=== PATIENT | male | born 1955 | race Caucasian/White ===

== ENCOUNTER → 2017-10-04 | Outpatient (CLI) | payer OTHER ==
[~2017-10-04] VITALS: Ht 175.3 cm; Wt 119.7 kg
[2017-10-04] VITALS (11 sets, daily range): BP systolic 96–144; BP diastolic 57–80
[~2017-10-04] MED LIST: ASPIR 8181 M1 PO; CINNAMON500 MG PO; COREG25 MG PO; LIPITOR80 MG PO; NORVASC10 MG PO; OMEPRAZOLE20 MG PO; PLAVIX 75 MG TA75 M1 PO; SELENIUM100 MCG PO; ZESTRIL40 MG PO
[2017-10-04 09:32] LABS: HEMATOCRIT 40.4 % (42.0-52.0); HEMOGLOBIN 13.8 gm/dL (14.0-18.0); MCH 28.7 pg (26.0-34.0); MCHC 34.2 g/dL (28.0-37.0); MCV 83.8 fL (80.0-100.0); MPV 8.4 fl. (7.2-11.1); RBC 4.82 mil/uL (4.50-6.00); RDW-CV 13.2 % (10.5-14.5); WBC 8.4 thou/uL (4.0-11.0)
[2017-10-04 09:37] LABS: ANION GAP 11 mmol/L (7-16); BUN 10 mg/dL (7-18); CALCIUM 8.9 mg/dL (8.5-10.1); CHLORIDE 103 mmol/L (98-107); CO2 26 mmol/L (21-32); CREATININE 0.9 mg/dL (0.6-1.3); GLUCOSE 160 mg/dL (70-99); POTASSIUM 4.2 mmol/L (3.5-5.1); SODIUM 140 mmol/L (136-145)
[2017-10-04 09:39] LABS: APTT 28.8 Seconds (25.0-31.3); PROTIME 10.2 Seconds (9.20-11.50)
[2017-10-04 09:44] LABS: ALBUMIN 3.6 g/dL (3.4-5.0); ALKALINE PHOSPHATASE 107 U/L (46-116); CHOLESTEROL 128 mg/dL (<200); HDL CHOLESTEROL 37 mg/dL (>40); LDL CHOLESTEROL 39 mg/dL (<100); SERUM ASSESSMENT Clear; SGOT 54 U/L (15-37); SGPT 81 U/L (30-65); TC:HDL 3.5 Ratio (Not establshd); TOTAL BILIRUBIN 0.4 mg/dL (<0.1-1.0); TOTAL PROTEIN 7.5 g/dL (6.4-8.2); TRIGLYCERIDE 261 mg/dL (<150); VLDL 52 mg/dL (<40)
--- NOTE | 2017-10-04 14:24 | TEE ---
[place] [address] TRANSESOPHAGEAL ECHOCARDIOGRAM Name: ALL PERDUEMOND Gisella Room: [facility]#: [id number] Admission: 10/04/17 Attend Phys: Serge Shaw, Discharge: Date of : 59 Date of Service: 10/04/17 1423 Report #: [id number] THIS REPORT FOR: //name// APPROVED REPORT Study performed: 10/04/2017 10:39:22 EXAM: Transesophageal Echocardiogram Patient Location: Out-Patient Status: routine BSA: 2.33 HR: 67 bpm BP: 127/70 mmHg Rhythm: NSR Other Information Study Quality: Good Indications Dilated aortic root, pre cath Echo Enhancing Agent Indication: Rule out Shunt Agent(s) / Amount(s) Used: Agitated Saline 10 cc Procedure After obtaining informed consent, patient underwent transesophageal echo in the [employer]. Type of Sedation : Conscious Sedation Sedation was administered by Marcela Vargas. Sedation start time: 1039 Case end Time: 1100 Sedation was achieved intravenously with: Versed (6) Fentanyl (125) Transesophageal probe was inserted and advanced into esophagus without difficulty by Serge Shaw MD, FACC. Echo enhancement indication: R/O Septal defect. Echo enhancement agent administered: Agitated Saline The BUSHRA was performed without complications. Throughout the procedure, the blood pressure, pulse oximetry, cardiac rhythm, and rate were monitored. The patient tolerated the procedure without adverse effects. Recovery from conscious sedation was uneventful and vital signs were stable. Left Ventricle [address] [address] TRANSESOPHAGEAL ECHOCARDIOGRAM Name: SAMIRA PERDUE Room: [facility] Patience#: [id number] Admission: 10/04/17 Attend Phys: Serge Shaw, Discharge: Date of : 59 Date of Service: 10/04/17 1423 Report #: [id number] The left ventricle is normal size. There is normal LV segmental wall motion. There is normal left ventricular wall thickness. Left ventricular systolic function is normal. LVEF is 60-65%. Right Ventricle The right ventricle is normal size. The right ventricular systolic function is normal. Atria The left atrium size is normal. No thrombus is visualized in the left atrium or appendage. Interatrial septum is intact without evidence of ASD or PFO. The right atrium size is normal. Aortic Valve The aortic valve is normal in structure. No aortic regurgitation is present. There is no aortic valvular stenosis. Mitral Valve The mitral valve is normal in structure. Trace to mild mitral regurgitation. No evidence of mitral valve stenosis. Tricuspid Valve Tricuspid valve is not well visualized. Pulmonic Valve Pulmonic valve is not well visualized. Great Vessels The aortic root is normal in size. The ascending aorta is moderate to severely dilated. Pericardium There is no pericardial effusion. <Conclusion> The left ventricle is normal size. There is normal left ventricular wall thickness. Left ventricular systolic function is normal. LVEF is 60-65%. The left atrium size is normal. No thrombus is visualized in the left atrium or appendage. The aortic valve is normal in structure. No aortic regurgitation is present. There is no [place] [address] TRANSESOPHAGEAL ECHOCARDIOGRAM Name: SAMIRA PERDUE Room: [facility]#: [id number] Admission: 10/04/17 Attend Phys: Serge Shaw, Discharge: Date of : 59 Date of Service: 10/04/17 142 Report #: [id number] Trace to mild mitral regurgitation. The ascending aorta is moderate to severely dilated. <ELECTRONICALLY SIGNED> By: Serge Shaw MD, FACC 10/04/17 142 22 22 Serge Shaw MD, FACC /INF
--- NOTE | 2017-10-04 14:54 | EKG ---
[place] [address] ELECTROCARDIOGRAM REPORT Name: SAMIRA PERDUE Room: [facility]#: [id number] Admission: 10/04/17 Attend Phys: Serge Shaw MD Discharge: Date of : 59 Report #: [id number] THIS REPORT FOR: //name// [facility] Test Date: 2017-10-04 Test Time: 09:45:32 Pat Name: SAMIRA PERDUE Department: Room: Gender: M Inspector Plug Seam: : 1955 Requested By: Serge Shaw Order Number: [id number] Reading MD: Karthikeyan Barlow Measurements Intervals [place] Rate: 54 P: 26 MA: 149 QRS: -28 QRSD: 111 T: 39 QT: 460 QTc: 436 Interpretive Statements Sinus rhythm Abnormal R-wave progression, early transition Left ventricular hypertrophy Baseline wander in lead(s) V4 No previous ECG available for comparison Electronically Signed On 10-04-2017 14:54:45 INFECTION CONTROL PRACTITIONER by Karthikeyan Barlow [email or web address] <ELECTRONICALLY SIGNED> By: Karthikeyan Barlow MD, [facility] 10/04/17 1454 944 4 Karthikeyan Barlow MD, FACC /EPI
--- NOTE | 2017-10-04 17:07 | CARD ---
[address] [address] CARDIAC CATH REPORT Name: SAMIRA PERDUE Room: [facility] [employer]Hima#: [id number] Admission: 10/04/17 Attend Phys: Serge Shaw MD Discharge: Date of : 59 Report #: [id number] THIS REPORT FOR: //name// ADDENDUM APPROVED REPORT Patient Details Patient Status: Out-Patient Room #: The patient is a 62 year-old male Event Personnel Serge Shaw Frame Trimmer, Marcela Vargas RN Housekeeping Director, Florence Smith Monitor, Jeffery Donovan Scrub Procedures Performed Art Access - R radial artery Left Heart Cath w/or w/o Coronaries [id number] [facility] Indication Patient has ascending aortic root aneurysm. Plan for repair in near future. Patient presents for elective left heart catheterization coronary angiography and evaluation of aortic valve. Procedure Narrative The patient was brought electively to the Cardiac Catheterization Laboratory and was prepped and draped in a sterile manner. The right wrist was infiltrated with 1% Lidocaine subcutaneous anesthesia. A Slender Glidesheath sheath was inserted into the right radial artery. Coronary angiography was performed using coronary diagnostic catheters. The right coronary system was accessed and visualized with a 3DRC 5frDiagnostic catheter. The left coronary system was accessed and visualized with a DCR: [place] 4.0 5frDiagnostic catheter. The left ventricle was accessed and visualized with a PC: Pig 6frDiagnostic catheter. Left ventriculogram was performed in GARCIA projection. Intraoperative Conscious Sedation Sedation start time: 11:23 Case end Time: 11:40 Versed 1 mg Fluoro Time: 7.0 minutes Dose: DAP [id number] cGycm2 2015.04 mGy Contrast Type and Amount: Omnipaque 130 [place] [address] CARDIAC CATH REPORT Name: SAMIRA PERDUE Room: [facility]#: [id number] Admission: 10/04/17 Attend Phys: Serge Shaw MD Discharge: Date of : 59 Report #: [id number] The patient's coronary anatomy is right dominant. Diagnostic Cath Left Main The left main coronary artery is normal and bifurcates into a left anterior descending and circumflex coronary artery. LAD The left anterior descending coronary artery has some mild 30% plaquing proximally. The distal vessel has a tubular 50% narrowing and 70% narrowing at the apex. There is a patent stents in the proximal portion of the LAD. Diagonal 1 The first diagonal branch has a 60% ostial narrowing and mild 10% narrowing in its mid course. Diagonal 2 The second diagonal branch is normal. Circumflex The circumflex coronary artery has a 95% stenosis after the takeoff of a third obtuse marginal branch. No other significant stenoses are noted. OM1 The first obtuse marginal branch is small and normal. OM2 The second obtuse marginal branches small to moderate in size and normal. OM3 The third obtuse marginal branch is moderate in size in normal. L PDA The fourth obtuse marginal branch is moderate in size and has a 90% ostial stenosis. Right Coronary The right coronary artery is minimally plaqued up to 10% in its proximal mid and distal portions. No hemodynamically significant stenoses are noted. R PDA The right PDA has a 90% proximal stenosis. The mid and distal vessel appeared normal. RPLV The right posterior lateral LV branch appears normal. Left Ventriculography The left ventricle is normal in size with normal contractility. The left ventricular ejection fraction is estimated to be 60-65%. Left ventricular wall motion abnormalities are not present. Hemodynamics The aortic pressure is 102/63 mmHg with a mean of mmHg. The left ventricular pressure is 111/-2 mmHg with a mean of mmHg. The left ventricular end diastolic pressure is 10 mmHg. There was no gradient across the aortic valve upon pullback. Pullback from the left ventricle to the aorta revealed no gradient across the aortic valve. Conclusion 1. Three-vessel coronary artery disease as outlined above. 2. [place] [address] CARDIAC CATH REPORT Name: SAMIRA PERDUE Room: [facility] SYD Morin#: [id number] Admission: 10/04/17 Attend Phys: Serge Shaw MD Discharge: Date of : 59 Report #: [id number] 3. Normal left ventricular systolic function. 4. Normal left jugular end-diastolic pressure. Recommendations 1. Continue aggressive risk factor modification. 2. Consider bypass grafting with upcoming aortic root aneurysm repair. <ELECTRONICALLY SIGNED> By: Serge Shaw MD, FACC 10/04/171706 06 06Michafsa Shaw MD, FACC /INF
--- NOTE | 2017-10-17 09:21 | H ---
[place] [address] HISTORY AND PHYSICAL Name: SAMIRA PERDUE Room: [facility]#: [id number] Admission: 10/04/17 Attend Phys: Serge Shaw MD Discharge: Date of : 59 Report #: [id number] THIS REPORT FOR: //name// CC: Refugio Smith INDICATION: The patient with dilated ascending aortic root. HISTORY OF PRESENT ILLNESS: The patient is being admitted to the hospital for elective transesophageal echocardiogram to evaluate his aortic valve as well as elective coronary angiography prior to recommended procedure to his ascending aortic thoracic aneurysm. The patient is a very pleasant 62-year-old gentleman with a history of ischemic cardiomyopathy. He had normalization of his LV systolic function with medical treatment. He has a remote cardiac history of cardiac arrest for which he has an ICD in place for secondary prevention. He has had no recent discharges. Presently, he denies any chest pain or shortness of breath. PAST MEDICAL HISTORY: 1. Coronary artery disease. 2. Dilated aortic root. 3. Hypertension. 4. Ischemic cardiomyopathy. 5. Presence of automatic implantable cardiac defibrillator. 6. Hyperlipidemia. PAST SURGICAL HISTORY: 1. Cardiac catheterization in 2006. 2. Cardiac defibrillator placement in 2006. CURRENT MEDICATIONS: Amlodipine 10 mg daily, aspirin 81 mg daily, atorvastatin 80 mg daily, carvedilol 25 mg one-half tablet b.i.d., vitamin D 1000 mg daily, cinnamon supplement daily, Plavix 75 mg daily, fish oil 1000 mg daily, lisinopril 40 mg daily, Lovaza 2 grams twice daily, omeprazole 20 mg daily, selenium 200 mg daily. FAMILY HISTORY: Noncontributory. SOCIAL HISTORY: The patient does not smoke. He quit smoking remotely. He does not drink alcohol. REVIEW OF SYSTEMS: A 14-point review of systems is as per [place] [address] HISTORY AND PHYSICAL Name: SAMIRA PERDUE Room: [facility]#: [id number] Admission: 10/04/17 Attend Phys: Serge Shaw MD Discharge: Date of : 59 Report #: [id number] PHYSICAL EXAMINATION: VITAL SIGNS: Stable. Blood pressure 140/86, pulse 67 and regular. GENERAL: This is a very pleasant gentleman in no distress. Mood and affect appropriate. HEENT: Extraocular muscles are intact. Mucous membranes are moist. NECK: Shows no jugular venous distention. There are no carotid bruits. CHEST: Reveals clear lung marina without wheezes, rales or rhonchi. CARDIAC: Reveals a regular rhythm without gallop or murmur. ABDOMEN: Reveals normal bowel sounds. The abdomen is soft and nontender. EXTREMITIES: Shows no edema. Peripheral pulses 2+ and easily palpable. IMPRESSION AND RECOMMENDATIONS: 1. Dilated aortic root. The patient is being admitted for elective transesophageal echocardiogram to evaluate aortic root and aortic valve. The patient will also undergo elective left heart catheterization and coronary angiography in preparation for possible intervention to the dilated aortic root. Coronary artery disease is presently stable. He is having no angina. 2. History of ischemic cardiomyopathy with normalization of his EF on most recent noninvasive studies. He is on appropriate medications. 3. ICD in place for secondary prevention. He has had no recent discharges from his ICD. 4. Hypertension, presently well controlled. <ELECTRONICALLY SIGNED> By: Serge Shaw MD, FACC 10/17/17 0921 0743 [id number] Shaw MD, FACC /nt
== END | disposition home or self-care (01) ==
LOC: M.CL 08:35
PROVIDERS: Internal Medicine Cardiovascular Disease
DX: I25.10 Atherosclerotic heart disease of native coronary artery without angina pectoris (principal); I34.0 Nonrheumatic mitral (valve) insufficiency; Z95.5 Presence of coronary angioplasty implant and graft; I10 Essential (primary) hypertension; E78.5 Hyperlipidemia, unspecified; E11.9 Type 2 diabetes mellitus without complications; Z98.890 Other specified postprocedural states; Z87.891 Personal history of nicotine dependence

== ENCOUNTER → 2019-09-29 | Outpatient (CLI) | payer OTHER ==
[2019-09-29 12:14] LABS: CALCIUM 9.3 mg/dL (8.5-10.1); MAGNESIUM 1.7 mg/dL (1.8-2.4); POTASSIUM 4.3 mmol/L (3.5-5.1)
== END ==
LOC: M.LAB 11:41
PROVIDERS: Internal Medicine Cardiovascular Disease
DX: I25.5 Ischemic cardiomyopathy (principal)